=== PATIENT | female | born 1980 | race Caucasian/White ===

== ENCOUNTER 2017-04-14 13:06 | Outpatient (CLI) | payer OTHER ==
[~2017-04-14 13:06] MED LIST: NORG1TAB83 PO
== END 2017-04-14 23:59 | disposition home or self-care (01) ==
LOC: RAD 13:06
PROVIDERS: ATTEND Internal Medicine Gastroenterology
DX: R14.0 Abdominal distension (gaseous) (principal)

== ENCOUNTER 2019-10-08 17:51 | Emergency (ER) | payer OTHER ==
[~2019-10-08] VITALS: Ht 162.6 cm; Wt 52.7 kg
[~2019-10-08 17:51] MED LIST changes: +NORG1TAB3 PO; -NORG1TAB83 PO
[2019-10-08 18:30] LABS: BASOPHILS % (AUTO) 0.7 % (0-1); EOSINOPHILS % (AUTO) 0.3 % (0-6); HEMATOCRIT 41.5 % (35.0-45.0); LYMPHOCYTES # (AUTO) 2.5 X10'3 (1.1-4.8); LYMPHOCYTES % (AUTO) 46.8 % (21-51); MEAN CORPUSCULAR HEMOGLOBIN 31.3 PG (27.0-31.0); MEAN CORPUSCULAR HGB CONC 33.7 g/dL (33.0-36.5); MEAN CORPUSCULAR VOLUME 93.1 FL (78-98); MEAN PLATELET VOLUME 7.7 FL (7.4-10.4); MONOCYTES # (AUTO) 0.5 X10'3 (0-0.9); MONOCYTES % (AUTO) 9.5 % (2-12); NEUTROPHILS # (AUTO) 2.3 X10'3 (1.8-7.7); NEUTROPHILS % (AUTO) 42.7 % (42-75); PLATELET COUNT 323 X10'3 (140-440); RED BLOOD COUNT 4.46 X10'6 (4.20-5.60); RED CELL DISTRIBUTION WIDTH 13.3 % (11.5-14.5); WHITE BLOOD COUNT 5.4 X10'3 (4.5-11.0)
[2019-10-08 18:46] LABS: ALANINE AMINOTRANSFERASE 16 U/L (12-78); ALBUMIN 4.1 G/DL (3.4-5.0); ALBUMIN/GLOBULIN RATIO 1.2 (1.1-1.5); ALKALINE PHOSPHATASE 30 IU/L (46-116); ANION GAP 12 (8-16); ASPARTATE AMINO TRANSFERASE 14 U/L (10-37); BILIRUBIN,TOTAL 0.5 MG/DL (0.1-1.0); BLOOD UREA NITROGEN 12 MG/DL (7-18); BUN/CREATININE RATIO 11.9 (6.6-38.0); CALCIUM 9.3 MG/DL (8.5-10.1); CHLORIDE 104 MMOL/L (99-107); CREATININE 1.01 MG/DL (0.40-0.90); GLUCOSE 103 MG/DL (70-104); POTASSIUM 3.3 MMOL/L (3.5-5.1); SODIUM 138 MMOL/L (135-145); TOTAL CARBON DIOXIDE 22.5 MMOL/L (24-32); TOTAL PROTEIN 7.5 G/DL (6.4-8.2); eGFR 61 ML/MIN
[2019-10-08 18:58] LABS: D-DIMER < 0.19 MG/L FEU (0-0.50)
[2019-10-08] MEDS ORDERED: ALBU6.7H9 INH (19:21)
[2019-10-08] MEDS ORDERED: DEXA4TAB PO (19:21)
[2019-10-08 19:41] VITALS: BP 121/80
== END 2019-10-08 19:44 | disposition home or self-care (01) ==
LOC: ER 17:53
DX: R00.0 Tachycardia, unspecified (principal); R06.02 Shortness of breath; R07.89 Other chest pain; Z72.89 Other problems related to lifestyle; Z88.5 Allergy status to narcotic agent; Z79.899 Other long term (current) drug therapy
CPT/HCPCS: 36415; 71045; 80053; 84145; 84484; 85025; 85379; 87635; 93005; 99285; C9803

== ENCOUNTER 2021-11-03 08:39 | Outpatient (CLI) | payer BC ==
[~2021-11-03 08:39] MED LIST changes: +ALBU6.7H14 INH; +DEXA4TAB75 PO
== END 2021-11-03 23:59 | disposition home or self-care (01) ==
LOC: RAD 08:39
PROVIDERS: ATTEND Physician Assistant
DX: M25.521 Pain in right elbow (principal); G90.519 Complex regional pain syndrome I of unspecified upper limb; M25.511 Pain in right shoulder
CPT/HCPCS: 73221

== ENCOUNTER 2021-12-09 10:53 | Outpatient (CLI) | payer BC | END 2021-12-09 23:59 | disposition home or self-care (01) | LOC: RAD 10:53 | PROVIDERS: ATTEND Physician Assistant | DX: M67.823 Other specified disorders of tendon, right elbow (principal); M25.521 Pain in right elbow; G90.519 Complex regional pain syndrome I of unspecified upper limb; M25.511 Pain in right shoulder | CPT/HCPCS: 73221 ==

== ENCOUNTER 2023-04-22 22:08 | Emergency (ER) | payer BC ==
[~2023-04-22] VITALS: Ht 160 cm; Wt 53.6 kg
[2023-04-22] MEDS ORDERED: iohexol 300mg/ml 100ml inj. ONE (22:40)
[2023-04-22 22:56] VITALS: BP 115/70; PULSE 86; O2SAT 98
[2023-04-22] MEDS: dexamethasone sod phosphate 10mg/ml inj PO STA (23:05)
[2023-04-22 23:13] LABS: BASOPHILS % (AUTO) 0.4 % (0-1); EOSINOPHILS % (AUTO) 0.4 % (0-6); HEMATOCRIT 37.1 % (35.0-45.0); HEMOGLOBIN 12.5 g/dl (12.0-16.0); LYMPHOCYTES % (AUTO) 18.5 % (21-51); MEAN CORPUSCULAR HEMOGLOBIN 30.9 PG (27.0-31.0); MEAN CORPUSCULAR HGB CONC 33.7 g/dL (33.0-36.5); MEAN CORPUSCULAR VOLUME 91.5 FL (78-98); MEAN PLATELET VOLUME 7.2 FL (7.4-10.4); MONOCYTES # (AUTO) 0.9 X10'3 (0-0.9); MONOCYTES % (AUTO) 7.9 % (2-12); NEUTROPHILS # (AUTO) 8.1 X10'3 (1.8-7.7); NEUTROPHILS % (AUTO) 72.8 % (42-75); PLATELET COUNT 349 X10'3 (140-440); RED BLOOD COUNT 4.05 X10'6 (4.20-5.60); RED CELL DISTRIBUTION WIDTH 13.1 % (11.5-14.5); WHITE BLOOD COUNT 11.1 X10'3 (4.5-11.0)
[2023-04-22 23:19] VITALS: RESP 15
[2023-04-22 23:22] LABS: ALBUMIN 3.7 G/DL (3.4-5.0); ANION GAP 9 (8-16); BLOOD UREA NITROGEN 17 MG/DL (7-18); BUN/CREATININE RATIO 19.3 (10.0-20.0); CALCIUM 8.8 MG/DL (8.5-10.1); CHLORIDE 105 MMOL/L (99-107); CREATININE 0.88 MG/DL (0.40-0.90); GLUCOSE 127 MG/DL (70-104); POTASSIUM 3.5 MMOL/L (3.5-5.1); SODIUM 141 MMOL/L (135-145); eCRCL 69 ML/MIN; eGFR 70 ML/MIN
[2023-04-22 23:27] LABS: HCG SERUM QL NEGATIVE
[2023-04-23] MEDS ORDERED: AMOX-117 PO (00:10)
[2023-04-23] MEDS ORDERED: PRED20TA PO (00:10)
[2023-04-23] MEDS: amox tr/potassium clavulanate 875/125mg TAB PO ONE (00:13)
[2023-04-23 00:46] VITALS: TEMP 98.2
[2023-04-23 03:11] LABS: STREP A SCREEN NEGATIVE (Neg)
[2023-04-24] MEDS ORDERED: FAMO-129 PO (16:50)
== END 2023-04-23 00:48 | disposition home or self-care (01) ==
LOC: ER 22:09
DX: R59.1 Generalized enlarged lymph nodes (principal); J02.9 Acute pharyngitis, unspecified; Z72.89 Other problems related to lifestyle; Z88.8 Allergy status to other drugs, medicaments and biological substances; Z79.899 Other long term (current) drug therapy
CPT/HCPCS: 36415; 70491; 80048; 84703; 85025; 87081; 87880; 99285; J1100; J3490; Q9967

== ENCOUNTER 2023-04-24 11:03 | Inpatient (IN) | payer BC ==
[2023-04-24] VITALS (13 sets, daily range): BP systolic 110–117; BP diastolic 67–78; PULSE 45–120; RESP 14–24; TEMP 98.1; O2SAT 98–100
[~2023-04-24] VITALS: Ht 160 cm; Wt 50.0 kg
[~2023-04-24 11:03] MED LIST changes: +AMOX-117 PO; +PRED20TA PO
[2023-04-24] MEDS ORDERED: iohexol 300mg/ml 100ml inj. ONE (12:18)
[2023-04-24] MEDS: normal saline 1000ML IV soln IV ONE (12:39)
[2023-04-24] MEDS: CefTRIAXone 2gm/D5W 50ml BAG 50 ML IV ONE (12:39)
[2023-04-24] MEDS: vancomycin/NS 1 GM ADD-VANTAGE 250 ML IV ONE (12:51)
[2023-04-24 12:57] LABS: BASOPHILS % (AUTO) 0 % (0-1); EOSINOPHILS % (AUTO) 0 % (0-6); HEMATOCRIT 39.2 % (35.0-45.0); HEMOGLOBIN 13.3 g/dl (12.0-16.0); LYMPHOCYTES # (AUTO) 0.7 X10'3 (1.1-4.8); LYMPHOCYTES % (AUTO) 4.5 % (21-51); MEAN CORPUSCULAR HEMOGLOBIN 31.1 PG (27.0-31.0); MEAN CORPUSCULAR HGB CONC 33.8 g/dL (33.0-36.5); MEAN CORPUSCULAR VOLUME 91.9 FL (78-98); MEAN PLATELET VOLUME 7.9 FL (7.4-10.4); MONOCYTES # (AUTO) 0.3 X10'3 (0-0.9); MONOCYTES % (AUTO) 1.9 % (2-12); NEUTROPHILS # (AUTO) 13.7 X10'3 (1.8-7.7); NEUTROPHILS % (AUTO) 93.6 % (42-75); PLATELET COUNT 383 X10'3 (140-440); RED BLOOD COUNT 4.26 X10'6 (4.20-5.60); WHITE BLOOD COUNT 14.6 X10'3 (4.5-11.0)
[2023-04-24] MEDS: LIDOcaine 4% (40 mg/ml) topical solution 50ml TP ONE (13:00)
[2023-04-24 13:06] LABS: ALBUMIN 3.9 G/DL (3.4-5.0); ANION GAP 12 (8-16); BLOOD UREA NITROGEN 11 MG/DL (7-18); BUN/CREATININE RATIO 12.2 (10.0-20.0); C-REACTIVE PROTEIN 1.43 MG/DL (0.0-0.5); CALCIUM 9.2 MG/DL (8.5-10.1); CHLORIDE 106 MMOL/L (99-107); GLUCOSE 130 MG/DL (70-104); MAGNESIUM 2.4 MG/DL (1.5-2.4); POTASSIUM 3.5 MMOL/L (3.5-5.1); SODIUM 142 MMOL/L (135-145); TOTAL CARBON DIOXIDE 24.2 MMOL/L (24-32); eCRCL 67 ML/MIN; eGFR 69 ML/MIN
[2023-04-24] MEDS: MIDAZolam 1 MG/ML 5ML VIAL IV ONE (13:59)
[2023-04-24] MEDS: midazolam 1 mg/ML 2ml injection ONE (14:00)
[2023-04-24] MEDS: midazolam 1 mg/ML 2ml injection IV ONE (14:02)
[2023-04-24] MEDS: dexamethasone sod phosphate 10mg/ml inj IV STA (14:04)
[2023-04-24] MEDS: racepinephrine 11.25mg/0.5ml nebule IH ONE ×2 (14:26→14:55)
[2023-04-24] MEDS: racepinephrine 11.25mg/0.5ml nebule ONE (14:56)
[2023-04-24] MEDS: famotidine/PF 10 mg/ml inj IV ONE (15:07)
[2023-04-24] MEDS: diphenhydrAMINE 50 mg/ml inj IV ONE (15:08)
[2023-04-24] MEDS: epiNEPHrine 1 mg/ml inj SQ ONE (15:09)
[2023-04-24] MEDS ORDERED: FAMO-129 PO (16:50)
[2023-04-24] MEDS: dextrose 5%-normal saline 1,000 ML IV SCH (18:28)
[2023-04-24] MEDS: famotidine/PF 10 mg/ml inj IV SCH (20:15)
[2023-04-24] MEDS: dexamethasone sod phosphate 10mg/ml inj IV SCH (20:46)
[2023-04-24] MEDS ORDERED: ipratropium/albuterol 3ml nebule NEB PRN (20:50)
[2023-04-24] MEDS ORDERED: racepinephrine 11.25mg/0.5ml nebule IH PRN (20:50)
[2023-04-24] MEDS: ampicillin/sulbac 3gm/NS 100ml 100 ML IV SCH (21:12)
[2023-04-24] MEDS ORDERED: acetaminophen 325mg tablet PO PRN (21:55)
[2023-04-24] MEDS: ketorolac trometh. 30mg/ml inj. IV ONE (22:07)
[2023-04-25] VITALS (26 sets, daily range): BP systolic 97–133; BP diastolic 49–91; PULSE 38–71; RESP 11–20; O2SAT 96–100
[2023-04-25] MEDS: ketorolac trometh. 30mg/ml inj. IV PRN (02:55)
[2023-04-25 06:12] LABS: BASOPHILS % (AUTO) 0.1 % (0-1); EOSINOPHILS % (AUTO) 0 % (0-6); HEMATOCRIT 34.8 % (35.0-45.0); HEMOGLOBIN 11.8 g/dl (12.0-16.0); LYMPHOCYTES # (AUTO) 1.2 X10'3 (1.1-4.8); LYMPHOCYTES % (AUTO) 12.2 % (21-51); MEAN CORPUSCULAR HEMOGLOBIN 31.5 PG (27.0-31.0); MEAN CORPUSCULAR HGB CONC 34.1 g/dL (33.0-36.5); MEAN CORPUSCULAR VOLUME 92.4 FL (78-98); MEAN PLATELET VOLUME 7.7 FL (7.4-10.4); MONOCYTES # (AUTO) 0.7 X10'3 (0-0.9); MONOCYTES % (AUTO) 7.4 % (2-12); NEUTROPHILS % (AUTO) 80.3 % (42-75); PLATELET COUNT 345 X10'3 (140-440); RED BLOOD COUNT 3.76 X10'6 (4.20-5.60); RED CELL DISTRIBUTION WIDTH 12.9 % (11.5-14.5)
[2023-04-25 06:33] LABS: ANION GAP 9 (8-16); BLOOD UREA NITROGEN 11 MG/DL (7-18); BUN/CREATININE RATIO 13.1 (10.0-20.0); CALCIUM 7.8 MG/DL (8.5-10.1); CHLORIDE 109 MMOL/L (99-107); CREATININE 0.84 MG/DL (0.40-0.90); GLUCOSE 154 MG/DL (70-104); POTASSIUM 3.8 MMOL/L (3.5-5.1); SODIUM 142 MMOL/L (135-145); TOTAL CARBON DIOXIDE 24.4 MMOL/L (24-32); eCRCL 69 ML/MIN; eGFR 74 ML/MIN
[2023-04-25] MEDS ORDERED: morphine 2 MG/ML inj. syringe IV PRN (10:25)
[2023-04-25] MEDS ORDERED: ketorolac trometh. 30mg/ml inj. IV PRN (10:30)
[2023-04-25 11:24] LABS: CREATINE KINASE 35 U/L (26-192); THYROID STIMULATING HORMONE 0.48 ulU/ml (0.34-4.50)
[2023-04-25] MEDS ORDERED: NORG-45 PO (11:33)
[2023-04-25 11:57] LABS: BILIRUBIN,URINE NEGATIVE (Neg); CLARITY,URINE SLIGHTLY CLOUDY (Clear); COLOR,URINE YELLOW (Yellow); GLUCOSE, URINE NEGATIVE (Neg); KETONES,URINE NEGATIVE (Neg); LEUKOCYTE ESTERASE ,URINE NEGATIVE (Neg); NITRITES, URINE NEGATIVE (Neg); OCCULT BLOOD,URINE TRACE-INTACT (Neg); PH,URINE 6.5 (4.8-8.0); PROTEIN,URINE TRACE mg/dl (Neg); UROBILINOGEN,URINE 0.2 E.U/dL (0.2-1.0)
[2023-04-25] MEDS: ringers solution, lacted 1,000 ML IV ONE (11:57)
[2023-04-25 12:00] LABS: UA COLLECTION TYPE CLN CATCH MIDSTREAM
[2023-04-25 12:04] LABS: BACTERIA,URINE 2+ /HPF (Neg); WBC,URINE 30-50 /HPF (0-4)
[2023-04-25 12:05] LABS: MUCUS STRANDS FEW /LPF (Neg); SQUAMOUS EPITHELIAL CELL,UR MANY /LPF (FEW)
[2023-04-25 13:32] LABS: BILIRUBIN,URINE NEGATIVE (Neg); CLARITY,URINE CLEAR (Clear); COLOR,URINE STRAW (Yellow); GLUCOSE, URINE NEGATIVE (Neg); KETONES,URINE NEGATIVE (Neg); LEUKOCYTE ESTERASE ,URINE NEGATIVE (Neg); NITRITES, URINE NEGATIVE (Neg); OCCULT BLOOD,URINE NEGATIVE (Neg); PROTEIN,URINE NEGATIVE (Neg); UROBILINOGEN,URINE 0.2 E.U/dL (0.2-1.0)
[2023-04-25 13:33] LABS: UA COLLECTION TYPE NON-SPECIFIED
[2023-04-25 15:06] LABS: OSMOLALITY 293 MOSM/K (280-300)
[2023-04-26] VITALS (14 sets, daily range): BP systolic 93–126; BP diastolic 48–76; PULSE 35–62; RESP 12–20; O2SAT 97–100
[2023-04-26 08:27] LABS: BASOPHILS % (AUTO) 0 % (0-1); EOSINOPHILS % (AUTO) 0 % (0-6); HEMATOCRIT 34.7 % (35.0-45.0); HEMOGLOBIN 11.7 g/dl (12.0-16.0); LYMPHOCYTES # (AUTO) 1.2 X10'3 (1.1-4.8); LYMPHOCYTES % (AUTO) 12.4 % (21-51); MEAN CORPUSCULAR HEMOGLOBIN 31.1 PG (27.0-31.0); MEAN CORPUSCULAR HGB CONC 33.6 g/dL (33.0-36.5); MEAN CORPUSCULAR VOLUME 92.5 FL (78-98); MONOCYTES # (AUTO) 0.6 X10'3 (0-0.9); MONOCYTES % (AUTO) 6.2 % (2-12); NEUTROPHILS # (AUTO) 7.7 X10'3 (1.8-7.7); NEUTROPHILS % (AUTO) 81.4 % (42-75); PLATELET COUNT 356 X10'3 (140-440); RED BLOOD COUNT 3.75 X10'6 (4.20-5.60); RED CELL DISTRIBUTION WIDTH 13.1 % (11.5-14.5); WHITE BLOOD COUNT 9.5 X10'3 (4.5-11.0)
[2023-04-26 08:30] LABS: ALANINE AMINOTRANSFERASE 34 U/L (12-78); ALBUMIN 2.8 G/DL (3.4-5.0); ALBUMIN/GLOBULIN RATIO 0.9 (1.1-1.5); ALKALINE PHOSPHATASE 41 IU/L (46-116); ANION GAP 7 (8-16); ASPARTATE AMINO TRANSFERASE 18 U/L (10-37); BILIRUBIN,TOTAL 0.3 MG/DL (0.1-1.0); BLOOD UREA NITROGEN 12 MG/DL (7-18); BUN/CREATININE RATIO 16.7 (10.0-20.0); CALCIUM 7.9 MG/DL (8.5-10.1); CHLORIDE 109 MMOL/L (99-107); CREATININE 0.72 MG/DL (0.40-0.90); GLUCOSE 160 MG/DL (70-104); POTASSIUM 4.2 MMOL/L (3.5-5.1); SODIUM 140 MMOL/L (135-145); TOTAL CARBON DIOXIDE 24.1 MMOL/L (24-32); TOTAL PROTEIN 5.9 G/DL (6.4-8.2); eCRCL 80 ML/MIN; eGFR 89 ML/MIN
[2023-04-26] MEDS ORDERED: MORP100S7 PO (12:04)
[2023-04-26] MEDS ORDERED: AMO250L PO (12:12)
[2023-04-26] MEDS ORDERED: PRED15SO72 PO (12:12)
== END 2023-04-26 13:25 | disposition home or self-care (01) | DRG 872 ==
LOC: ER 11:04 → ED HOLD 18:20 → EDBEDREQ 19:52 → CICU 2S 20:30
PROVIDERS: ADMIT Internal Medicine Critical Care Medicine; ATTEND Internal Medicine Critical Care Medicine
PROC: 0BJ08ZZ Inspection of Tracheobronchial Tree, Via Natural or Artificial Opening Endoscopic (ICD-10-PCS; principal; 2023-04-24)
PROC: BW2F1ZZ Computerized Tomography (CT Scan) of Neck using Low Osmolar Contrast (ICD-10-PCS; 2023-04-24)
DX: A41.9 Sepsis, unspecified organism (principal); E86.1 Hypovolemia; J06.0 Acute laryngopharyngitis; R59.0 Localized enlarged lymph nodes; Z20.822 Contact with and (suspected) exposure to COVID-19; R73.9 Hyperglycemia, unspecified; J04.2 Acute laryngotracheitis; J04.30 Supraglottitis, unspecified, without obstruction; R49.0 Dysphonia; Z88.6 Allergy status to analgesic agent
CPT/HCPCS: 36415; 70491; 80048; 80053; 81001; 81003; 82550; 83605; 83735; 83930; 84145; 84443; 85025; 85651; 86140; 87040; 87081; 87634; 92508; 92616; 94640; 94760; 96365; 96368; 96372; 96375; 99291; 99292; A4615; A6213; A6258; A6449; G0378; J0171; J0295; J0696; J1100; J1200; J1885; J2250; J3370; J3490; J7030; J7040; J7042; J7070; J7120; Q9967

== ENCOUNTER → 2023-11-30 | Emergency (ER) | payer BC ==
[~2023-11-30] VITALS: Ht 165.1 cm; Wt 54.5 kg
[~2023-11-30] MED LIST changes: -ALBU6.7H14 INH; -AMOX-117 PO; -DEXA4TAB75 PO; +MORP100S7 PO; +NORG-45 PO; -NORG1TAB3 PO; +PRED15SO72 PO; -PRED20TA PO
[2023-11-30 04:30] VITALS: BP 132/67; PULSE 63; RESP 14; TEMP 98; O2SAT 100
== END | disposition home or self-care (01) ==
LOC: ER 04:19
DX: S93.602A Unspecified sprain of left foot, initial encounter (principal); Z88.5 Allergy status to narcotic agent; Z79.899 Other long term (current) drug therapy; X50.1XXA Overexertion from prolonged static or awkward postures, initial encounter; Y93.89 Activity, other specified; Y92.89 Other specified places as the place of occurrence of the external cause; Y99.8 Other external cause status
CPT/HCPCS: 73630; 99283

== ENCOUNTER 2024-11-08 13:05 | Day surgery (SDC) | payer BC ==
[2024-11-06 14:24] LABS: MEAN PLATELET VOLUME 7.6 FL (7.4-10.4); PRE OP HEMATOCRIT 38.9 % (35.0-45.0); PRE OP HEMOGLOBIN 13.0 g/dL (12.0-16.0); PRE OP PLATELET COUNT 353 X10'3 (140-440); PRE OP WHITE BLOOD COUNT 6.5 10'3 (4.8-10.8); RED CELL DISTRIBUTION WIDTH 13.4 % (11.5-14.5)
[2024-11-06 14:35] LABS: HCG SERUM QL NEGATIVE
[2024-11-06 14:41] LABS: LEUKOCYTE ESTERASE ,URINE NEGATIVE (Neg); NITRITES, URINE NEGATIVE (Neg); OCCULT BLOOD,URINE NEGATIVE (Neg)
[2024-11-06 14:45] LABS: UA COLLECTION TYPE NON-SPECIFIED
[2024-11-06 14:48] LABS: CREATININE 0.79 MG/DL (0.40-0.90); PRE OP ALT 18 U/L (30-65); PRE OP ANION GAP 10 (8-16); PRE OP AST 17 U/L (10-37); PRE OP BILIRUB, TOTAL 0.6 MG/DL (0.0-1.0); PRE OP GLUCOSE 90 MG/DL (70-104); PRE OP POTASSIUM 3.8 MMOL/L (3.4-5.1); PRE OP SODIUM 142 MMOL/L (135-145); TOTAL CARBON DIOXIDE 27.5 MMOL/L (24-32); eGFR 79 ML/MIN
[2024-11-08] VITALS (7 sets, daily range): BP systolic 95–128; BP diastolic 59–64; PULSE 57–96; RESP 10–16; TEMP 97.8; O2SAT 98–100
[~2024-11-08] VITALS: Ht 162.6 cm; Wt 55.3 kg
[2024-11-08] MEDS: ceFAZolin 2gm/dext,iso 50mL 50 ML IV ONE (05:30)
[~2024-11-08 13:05] MED LIST changes: +BUPIVAcaine 2.5mg/ml inj 50ml vial (contains preservative) ONE; -MORP100S7 PO; -PRED15SO72 PO; +bacitracin 15gm ointment TP ONE
[2024-11-08] MEDS: ringers solution, lacted 1,000 ML IV SCH (13:56)
[2024-11-08] MEDS ORDERED: cloNIDine hcl/PF 100mcg/ml inj ONE (15:09)
[2024-11-08] MEDS ORDERED: midazolam 1 mg/ML 2ml injection ONE (15:12)
[2024-11-08] MEDS ORDERED: fentaNYL/PF 50MCG/1 ML 2ML syringe ONE (15:12)
[2024-11-08] MEDS ORDERED: propofol inj 20 ML IV ONE (16:56)
[2024-11-08] MEDS ORDERED: ROPIVAcaine 0.5% (5mg/ml) 30ml vial ONE (16:57)
[2024-11-08] MEDS ORDERED: dexamethasone sod phosphate 4mg/ml inj. ONE (16:57)
[2024-11-08] MEDS ORDERED: ondansetron/PF 4mg/2ml inj ONE (17:03)
[2024-11-08] MEDS ORDERED: acetaminophen 1,000mg/100ml IV 100 ML IV PRN (17:40)
[2024-11-08] MEDS ORDERED: morphine 4 MG/ML inj SYRINge IV PRN (17:40)
[2024-11-08] MEDS ORDERED: hydrALAZINE 20mg/ml inj. IV PRN (17:40)
[2024-11-08] MEDS ORDERED: ringers solution, lacted 1,000 ML IV SCH (17:40)
[2024-11-08] MEDS ORDERED: labetalol 20mg/4ml (5mg/ml) syringe IV PRN (17:40)
[2024-11-08] MEDS ORDERED: HYDROmorphone/PF 0.2 MG/ML SYRINGE IV PRN ×2 (17:40)
[2024-11-08] MEDS: ondansetron/PF 4mg/2ml inj IV PRN (18:01)
--- NOTE | 2024-11-09 04:10 | OPERATIVE REPORT ---
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 PROCEDURES: 1. Calcaneal autograft harvest. 2. First tarsometatarsal joint midfoot joint arthrodesis. 3. Distal soft tissue balancing of the first MTP joint. 4. Left foot and ankle. SURGEON: Daniel Garcia DPM [employer] COUNSELOR: Mayo Brown DPM fellow, assistance was needed to decrease tourniquet time, help with efficiency and retraction throughout the entirety of the procedure. ANESTHESIA: General anesthesia. HEMOSTASIS: Thigh tourniquet at 300 mmHg. FINDINGS: None. COMPLICATIONS: None. SPECIMENS: None. ESTIMATED BLOOD LOSS: Less than 5 to 10 mL. HARDWARE USED: Two Ossio shar plus an Ossio 3.0 threaded nail. INDICATIONS: The patient presented to my office with the above-listed complaints which has been unresponsive to conservative treatment options. Thus, surgical options have been offered along with all potential risks, complications, and surgical alternatives being fully explained to the patient with understanding. No guarantees were given. Clinical and radiographic data correlated with the above diagnosis. DESCRIPTION OF PROCEDURE: The patient was brought to the operating room, placed on the operating room table in supine position. After induction of general anesthesia, the patient received popliteal and saphenous nerve block. The foot and ankle were prepped and draped in the usual aseptic fashion. Previously applied thigh tourniquet inflated to 300 mmHg after a timeout was called and preoperative antibiotics were given and dosed appropriately. Calcaneal autograft harvest: We then brought our attention to the lateral aspect of the left heel where the calcaneal body was identified and a small stab incision was then made using a #15 blade. We carefully dissected down to the level of bone, removing some of the periosteum for our proposed autograft harvest site. We then used a calcaneal coring reamer in order to obtain a large amount of calcaneal autograft of the calcaneal body. We made multiple passes until we placed this into a specimen cup and determined that this was enough, so therefore we placed the nylon stitch over this incision. Midfoot arthrodesis plus distal soft tissue procedure of the left foot: We then brought attention to the medial aspect of the patient's first TMT joint where a separate incision was made with a #15 blade. We carefully dissected down to the level of the subcutaneous tissue with care being taken to identify and retract all vital neurovascular structures. We then dissected down to the level of the TMT joint, which was opened up to the operative field. The patient did have a tracking deformity of the first metatarsophalangeal joint, so therefore a separate incision was then made over the first interspace where a lateral release was then performed using a #15 blade. We did this until there was excellent movement of the first TMT joint. This deformity was largely reduced, so therefore we brought our attention back to the first TMT joint and then we used a saw resection cut of the base of the first metatarsal as well as the distal aspect of the cuneiform and then we reduced the patient's first TMT joint in a triplanar correction and then we pinned with 0.062 K-wires. After we liked our positioning, we then placed two shar in a 90-degree fashion, one dorsal and one medial, using the community relations representative in the room and culture manager's guidelines. These shar were Ossio 20 x 20 biointegrated shar. After this, we then placed an M1 to M2 wire for a 3.0 Ossio threaded nail, which was used to hold further compression. We then took another image fluoroscopically and it was noted that the patient did have an increase in soft tissue density of the medial aspect of the first metatarsophalangeal joint. We decided to do a medial capsulorrhaphy, so therefore we made a small elliptical incision using a #15 blade over the medial aspect and we carefully dissected down to the level of the capsule of this joint. Once we made a small incision of the capsule, the patient had ganglionic cyst fluid, which was carefully excised and flushed away. There was a soft tissue mass within this region that was causing the appearance of the patient's bunion. After we decompressed this, the patient had an excellent clinical appearance of the reduction of the bunion; so therefore we did perform a capsulorrhaphy, taking a small wedge of capsule out, and then we repaired this and reefed this up with a 3-0 Vicryl. After this, we then took final fluoroscopic imaging, which was noted to have excellent correction. We were very happy with the correction and the stability, so therefore we took final fluoroscopic imaging and flushed all our incisions with copious amounts of sterile normal saline and closed in a layered fashion. A 3-0 Vicryl suture was used to close the subcutaneous tissue and 3-0 nylon was used to close the skin in horizontal mattress technique. The incisions were then dressed with triple antibiotic followed by Adaptic, 4 x 4s, and Webril. The patient was placed in a well-padded posterior splint with the foot held at a neutral position. The tourniquet was deflated. The patient was taken out of general anesthesia and placed in the PACU with vital signs stable and vascular status intact to the operative foot. The patient is going to be nonweightbearing to the operative foot and is instructed to follow up with me in approximately 1-2 weeks after surgery. The entire case was performed in a teaching fashion. I was available pre and postoperatively and answered questions from the patient and her family. DANIEL GARCIA DPM TID: [id number] RECEIPT: [id number] AMELIA/LITO ALVES
== END 2024-11-08 18:49 | disposition home or self-care (01) ==
LOC: PAS 13:05
PROVIDERS: ATTEND Podiatrist Foot & Ankle Surgery
DX: M21.962 Unspecified acquired deformity of left lower leg (principal); M21.6X2 Other acquired deformities of left foot; M20.12 Hallux valgus (acquired), left foot; G89.18 Other acute postprocedural pain; Z79.899 Other long term (current) drug therapy; Z98.890 Other specified postprocedural states; Z88.8 Allergy status to other drugs, medicaments and biological substances; Z90.721 Acquired absence of ovaries, unilateral
CPT/HCPCS: 20900; 28270; 28730; 36415; 73620; 80053; 81003; 82948; 84703; 85025; A6223; C1713; J0735; J1100; J2250; J2405; J2704; J2795; J3010; J3490; J7030; J7120; Z7506; Z7508; Z7512; 76000; A4215; A4618; A6449; A7000